=== PATIENT | male | born 1955 | race Caucasian/White ===

== ENCOUNTER 2017-02-19 05:53 | Day surgery (SDC) | payer OTHER ==
--- NOTE | 2017-02-14 11:35 | PCM.ANEPRE ---
Anesthesia Pre-Op Review Reason for Review: SURGEON'S REQUEST "MAC ANESTHESIA" Anesthesia Recommendations: Proceed with Procedure (oFFICE REQUESTED REVIEW BECAUSE PATIENT HAD Chest pain one year ago. The chest pain was worked up and EKG and labs were wnl. Low risk surgery. Proceed) Garry Alexandre MD Feb 14, 2017 11:35
[~2017-02-19] VITALS: Ht 175.3 cm; Wt 112.4 kg
[~2017-02-19 05:53] MED LIST: Bacitracin 50,000 unit Inj IRRIGATION ONE; HYDR12.5 PO; LISI40TA PO; OMEP20CA11 PO; OXYC1TAB24 PO; TYLENOL ARTHRITIS PO
[2017-02-19] MEDS ORDERED: fentaNYL-PF 50 mCg/mL 2 mL Inj ONE (05:54)
[2017-02-19] MEDS ORDERED: Propofol 10,000 mCg/mL 20 mL Inj ONE (05:54)
[2017-02-19] MEDS ORDERED: Lidocaine PF 1% 30 mL Inj ONE (05:54)
[2017-02-19] MEDS ORDERED: CeFAZolin 2 Gm/50 mL D5W IV Premix IV ONE (06:00)
[2017-02-19 06:33] VITALS: BP 121/84; PULSE 116; RESP 15; O2SAT 96
[2017-02-19] MEDS ORDERED: CeFAZolin Inj 2 gm / 50mL D5W IV ONE (06:34)
[2017-02-19] MEDS: Lactated Ringer's 1,000 ML IV SCH ×2 (06:39→07:53)
[2017-02-19] MEDS ORDERED: IBUP-1827 PO (06:46)
[2017-02-19] MEDS ORDERED: HYDROmorphone 1 mg/mL Inj IVPUSH PRN (07:15)
[2017-02-19] MEDS ORDERED: Phenylephrine 10,000 mCg/mL Inj IVPUSH PRN (07:15)
[2017-02-19] MEDS ORDERED: fentaNYL-PF 50 mCg/mL 2 mL Inj IVPUSH PRN (07:15)
[2017-02-19] MEDS ORDERED: Lactated Ringer's 500 ML IV PRN (07:15)
[2017-02-19] MEDS ORDERED: Ondansetron 2 mg/mL 2 mL Inj IVPUSH PRN (07:15)
[2017-02-19] MEDS ORDERED: EPHEDrine Sulfate 50 mg/mL Inj IVPUSH PRN (07:15)
[2017-02-19] MEDS ORDERED: MetoCLOpramide 5 mg/mL 2 mL Inj IVPUSH PRN (07:15)
[2017-02-19] MEDS ORDERED: Dexamethasone 4 mg/mL Inj IVPUSH PRN (07:15)
[2017-02-19] MEDS ORDERED: Lactated Ringer's 1,000 ML IV SCH (07:15)
--- NOTE | 2017-02-19 07:15 | PCM.HPANE ---
Patient Data Date of Service: Feb 19, 2017 (0715) Surgeon Admitting Provider: Attending Provider:Yohannes Mcmanus MD Primary Care Physician:Amos Milner MD Other Provider:Sonya Neely Anesthesia Reason for Visit Left Carpal Tunnel Syndrome Ht/WT & BMI Height (Feet): 5 Height (Inches): 9 Weight (Kilograms): 112.4 Body Mass Index 36.00 Allergies Coded Allergies: povidone-iodine (Verified Allergy, Severe, rash, 02/14/17) soap (Verified Allergy, Severe, rash, 02/14/17) Past Anesthesia History Anesthesia History: Denies:: Anesthesia Reactions, Fam Anesthesia Reaction, Fam Malignant Hypertherm, Malignant Hyperthermia Diabetes History Hx Diabetes?: No Current Bedside Blood Glucose: 122 MRSA MRSA: No Medications Hypertension Medication: Yes (LISINOPRIL,HCTZ) Home Meds Incl Beta Margoth: No Reported Medications Ibuprofen 600 Mg [id number] Mg PO TID PRN For Pain Ref 0 02/19/17 oxyCODONE-Acetaminophen 5-325 mg 1 Each Tablet1-2 Tab PO Q6H PRN For Pain Ref 0 02/14/17 Hydrochlorothiazide 12.5 Mg Bfhmilx46.5 Mg PO DAILY 30 Days Ref 0 03/11/14 Lisinopril 40 Mg Bpjijp49 Mg PO DAILY 30 Days Ref 0 03/11/14 Omeprazole 20 Mg Capsule.dr20 Mg PO DAILY 30 Days Ref 0 03/11/14 Discontinued Reported Medications [Tylenol Arthritis] No Conflict Nrtjb915-2,300 Mg PO Q 4-6HRS PRN 03/11/14 Amlodipine 10 Mg Lwenuc14 Mg PO DAILY 30 Days Ref 0 03/11/14 Multivitamin (Daily Multiple Vitamin)1 Each Tablet1 Each PO DAILY 03/11/14 Discontinued Scripts Hydrocodone-Acetaminophen 5-325 mg 1 Each Tablet1-2 Tablet PO QID PRN For Pain # 12 TABLET Prov:Lenin Villar DO 04/15/16 History History of ENT Problems?: Yes HEENT History: Positive for:: Sinus Problem (SEASONAL ALLERGIES) Denture Type: None Teeth Condition: Within Normal Limits Hx of Heart Problems?: Yes Cardiovascular History: Positive for:: Chest Pain (04/2016 (GLF AFTER BRIEF LOC)) Hypertension (HYPERLIPIDEMIA) Irregular Heartbeat (HX OF SINUS TACHY-DOESN'T SEE MASTER POLICE DETECTIVE) Denies:: Congestive Heart Failure Heart Murmur Hx of Respiratory Problem?: Yes Respiratory History: Denies:: Use of C-PAP Machine (SNORES) Hx Neurologic Problems?: Yes Neurological History: Positive for:: Headaches Hx of GI Problems?: Yes Other GI Pertinent History: S/P HERNIA RPR Hx of Problems?: Yes Other Pertinent History: HX LT RENAL SIMPLE CYST C/OF NOCTURIA Male Hx: Denies:: Prostate Problems Scrotal Mass Testicular Surgery Skin History: Denies:: History Skin Disorders? 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) Musculoskeletal Trauma (GLF W/ LOC) Osteoarthritis Hx of Psycho/Social Problems?: Yes Psycho Social History: Positive for:: Anxiety Hx Depression Hx Surgeries?: No (HERNIA RPR,B/L CASSY,RT CTR) Hx Any Other Health Problems?: Yes Other History: Denies:: Cancer Endocrine Disease Hospitalization Thyroid Disease History Blood Transfusions: Denies:: Blood Transfusions Hx Diabetes: NoBedside Blood Glucose: 122 Hx Alcohol Use: Yes (DAILY)Alcoholic Drinks Per Day: 15/WEEKHx Substance Use: Yes (HX OF THC) Smoking Status: Current Some Day Smoker Have You Smoked inLast 12 mo: YesApprox How Many Cigarettes/day: 1 PPD Stop/Bang S-Snoring: Do You Snore Loudly: Yes T-Tired: feel tired, fatigued: Yes O-Obsered: Observed not breath: No P-Blood Pressure: treated: Yes B- Body Mass Index > 35 kg/m2: Yes A- Age over 50: Yes N- Neck Large Circumference: Yes G- Gender Male: Yes ELEAZAR Total Score: 7 ELEAZAR Risk Assessment: High Risk, =/>3 Yes Risk Assessment Category Category 1A: Patient has history of documented sleep apnea, and HAS NOT received any narcotic, sedative or anesthesia administration during this stay. Category 1B: Patient has history of documented sleep apnea, and HAS received any narcotic , sedative or anesthesia administration during this stay Category 2: Patient has SUSPECTED Obstructive Sleep Apnea, and HAS received any narcotic , sedative or anesthesia administration during this stay. Category 3: Patient has SUSPECTED Obstructive Sleep Apnea and HAS NOT received narcotic, sedative or anesthesia administration during this stay. Category 4: Outpatient in Procedural Areas with known sleep apnea or who screen positive for High Risk via the STOP/BANG questionnaire. Exam Exam Vital Signs Vital Signs Date Time Temp Pulse Resp B/P Pulse Ox O2 Delivery O2 Flow Rate FiO2 02/19/17 06:33 36.2 116 15 121/84 96 General Appearance: Alert, Oriented X3, Cooperative HEENT/AIRWAY: MP 3 Lungs: Clear to Auscultation Heart: Exam Unremarkable Meds/Labs/Diagnostics Admission Meds Current Medications Lactated Ringer's (Lr) 1,000 ml @ 120 mls/hr Q8H20M IV Last administered on t 06:39; Start 02/19/17 at 05:00; Stop 02/19/17 at 13:19 Bedside Blood Glucose: 122 Plan Impression Patient chart reviewed, patient interviewed and anesthestic plan with risks, benefits, and alternatives discussed, and informed consent obtained. NPO per Anesth. Guidelines: Yes ASA Physical Status: ASA3 Severe Disease Anesthetic Plan: MAC Bene/Risks/Altern/Consents: Yes HP Complete Prior to Induction: Yes Bill Cool MD Feb 19, 2017 07:15
[2017-02-19] MEDS ORDERED: Bacitracin 50,000 unit Inj ONE (07:17)
--- NOTE | 2017-02-19 08:12 | PCM.DISURG ---
Surgical Discharge Instruction Date of Service Feb 19, 2017 Dates of Hospitalization Date of Hospital Admission Day Surgery status 02/19/2017 Providers Admitting Physician: Primary Care Physician: Amos Milner MD Attending Physician: Yohannes Mcmanus MD Discharge Diagnosis Discharge Diagnosis Status post left carpal tunnel release Post Operative diagnosis Status post left carpal tunnel release Additional Instructions Discharge Instructions POST OPERATIVE INSTRUCTIONS FOR CARPAL TUNNEL SURGERY Carpal tunnel syndrome is a disorder of the hand which can result in characteristic symptoms of pain and tingling (usually the thumb, index and middle fingers), loss of feeling in the hand, clumsiness and difficulty with manual activities. Description of Carpal Tunnel Syndrome The carpal tunnel is a narrow tunnel formed by the bones and ligaments of the wrist through which the nerves and tendons pass from the forearm to the hand. If the tendon linings become inflamed and swell, this can compress the main nerve of the hand (the median nerve) causing symptoms. This condition affects many people including laborers, typists, women and retired people alike. In most cases there is no obvious cause for the problem. Treatment Initial treatment can consist of splinting, and therapy. Definitive treatment is with surgical release of the carpal tunnel performed as a out-patient day procedure. Our preference is to perform this surgery under local anesthetic after the Anesthesiologist has given you some intravenous sedation. Dressings Your hand will be bandaged following your surgery. If you wish to take a shower , tape a plastic bag over your bandage and hold well above your head to prevent water dripping inside your dressing. These dressings can be changed by a Hand Therapist, a nurse or your doctor 7 and 14 days following surgery or as needed if they become soiled or saturated. You will only need dressing changes for the first two weeks or so until primary healing has occurred. Stitches Stitches will be removed by your nurse or provider 2 weeks after surgery. Smoking: Cigarette smoking (even just one or two!) can affect your healing and rate of complications. We therefore strongly recommend that you do not smoke for one month after your surgery. Medication: Take your usual and post operative medication as instructed. Aspirin: If you are taking aspirin under your doctor's orders (e.g. you have previously had a blood clot, stroke, heart attack, etc) it is preferable that you continue taking your aspirin. Otherwise you should avoid medicines containing aspirin for four days after surgery. Vitamin E: You should avoid medicines containing vitamin E for four weeks after surgery. Alcohol: Do not drink any alcohol (beer, wine, spirits) for one week after surgery. Food and Fluids: You may be constipated so have light meals with plenty of fluids (preferably 6- 8 glasses of water per day). Eat ample fresh fruit and vegetables. To reduce fluid retention, avoid salty foods. Activity We generally encourage gentle movements of the fingers within the dressing for the first few days. Keep your hand elevated above the heart for the first 48-72 hours to control swelling. Early movement is crucial to a good recovery and we will specify to you if you are to limit this mobilization in any way. You should be able to use your hand for eating, dressing and attending to hygiene needs straight after your operation. Please sleep with your hand elevated on a pillow beside you for the first week (at least) following surgery. Driving It is generally considered unsafe to drive with dressings in place. Your ability to drive safely will be determined by numerous factors relating your car and also your surgery. As a general rule, expect at least a week off driving or as long as you continue to take narcotic pain medications. Pain Pain is not usually a feature following this surgery. If you do have pain you should take your postoperative pain medications as directed. Recovery Generally speaking, carpal tunnel release is very successful surgery with a reliable outcome if pain is your only symptom. If there has been a long standing compression of the nerve with altered nerve function (numbness or weakness) your recovery may not be fully guaranteed. In these instances return of function is largely determined by the degree of compression and for how long the nerve was compressed. Work Your return to work will be largely determined by what you do with your hands at your place of work and whether the operation was to your dominant hand. A return to clerical duties can occur within days of surgery whereas it can be several weeks before returning to a manual job. Full strength and dexterity will not return until 3-6 months after surgery. Your Initial Follow-Up Schedule: Wound Checks in 1 & 2 weeks You should call your Doctor or go to the Emergency Department if you develop chest pain, shortness of breath, a temperature greater than 101.5 F , Increased pain/swelling/bruising, Change of color of any of your digits, Bleeding/ discharge/offensive odor or Any sudden loss of movement in your hand. Follow Up Plan Follow Up Plan Follow-up with Dr. Yohannes Mcmanus, and the [facility] in [facility] in 1 week for wound check & 2 weeks for suture removal. Follow-up Provider (F9): Yohannes Mcmanus MD Additional Information Attending Statement All documentation reviewed & orders authorized by Dr. Yohannes Mcmanus M.D. Damon Swenson PA-C Feb 19, 2017 08:12
[2017-02-19] MEDS ORDERED: oxyCODONE-Acetamin 5-325 mg Tablet PO PRN (08:15)
[2017-02-19] MEDS ORDERED: Bacitracin Ointment Packet TOPICAL ONE (08:17)
--- NOTE | 2017-02-19 08:26 | PCM.ANEP1 ---
Post Anesthesia PACU Phase 1 Assessment Vital Signs 36.4, 94%, 110, 123/106, 10 Vital Signs Date Time Temp Pulse Resp B/P Pulse Ox O2 Delivery O2 Flow Rate FiO2 02/19/17 06:33 36.2 116 15 121/84 96 Anesthetic Administered: MAC Level of Alertness: Awake, talking RIDLEY's with Equal Strength: Yes Pain: No Nausea or Vomiting: No CV Function & Hydration Stable: Yes Airway Device: NONE Oxygen Delivery: Room Air Lungs: Clear to Auscultation Dermatome Level: Full Sensation Summary UNEVENTFUL GA PACU Phase 2 Assessment Complications: No Follow up Care: No Patient Instructions Provided: N/A Bill Cool MD Feb 19, 2017 08:26
[2017-02-19 08:34] VITALS: BP 125/85; PULSE 100; RESP 16; O2SAT 99
[2017-02-19 08:57] VITALS: BP 143/7; PULSE 108; RESP 18; O2SAT 99
--- NOTE | 2017-02-19 17:37 | OP ---
[address] [address] OPERATIVE REPORT PATIENT: HARSH ZAIDI : 1955 MR#: [id number] ADMIT: 02/19/2017 JOB ID: [id number] DATE OF SURGERY: 02/19/2017 SURGEON: Yohannes Mcmanus M.D. MANAGER TALENT ACQUISITION: None. PREOPERATIVE DIAGNOSIS(ES): Left carpal tunnel syndrome. POSTOPERATIVE DIAGNOSIS(ES): Left carpal tunnel syndrome. OPERATIVE PROCEDURE: Left carpal tunnel release. ANESTHESIA: MAC with local. COMPLICATIONS: None. ESTIMATED BLOOD LOSS: Less than 5 cc. DRAINS: None. FINDINGS AT THE TIME OF SURGERY: There was very thickened transverse carpal ligament. Sectioning of the ligament was undertaken without difficulty both proximally and distally. After decompression, there appeared to be no further compression of the median nerve. Superficial neurolysis was performed. INDICATIONS: This is a 61-year-old gentleman who has been having persistent paresthesias of the left hand. The patient has undergone conservative therapy. The patient subsequently had electrodiagnostic studies compatible with carpal tunnel syndrome. The patient failed conservative treatment. He subsequently wanted to proceed with surgery and here at this time for a left carpal tunnel release. Indications and complications of the procedure were explained to the patient on his preop visit. It was explained to the patient that all the paresthesias may not get better 100%, and it may take a while for all the symptoms to resolve. PROCEDURE: The patient was identified in the preoperative area. Left arm was marked. The patient's history, examination, medications, allergies and labs were reviewed. He was then taken to the operating room where he underwent general endotracheal anesthesia without complication. He was given 2 gm of intravenous Ancef. The patient refused to use the SCDs in the lower extremities. The left hand and forearm was then prepped in the usual sterile fashion for a left carpal tunnel release. After appropriate prepping and draping, the appropriate time out was performed confirming the patient's name, date of , planned procedure and presence of appropriate instrumentation. The patient's ELEAZAR, beta block, diabetic and MRSA status was reviewed. Antibiotic administration, DVT prophylaxis and appropriate imaging on the screen was confirmed. At the time I was completed, the proximal wrist and palm was infiltrated with 50/50% solution of 0.25% Marcaine and 1% Xylocaine without epinephrine. After infiltration of the skin, a single linear incision was then made from the transverse crease of the wrist following distally to the mid palmar area, carried down through skin and subcutaneous tissue. Subcutaneous retractors were placed along of the palmar aponeurosis. This was carefully incised closing the thickening transverse carpal ligament. The ligament was then placed on stretch using retractor and then careful sectioning of the transverse carpal ligament was undertaken until the nerve was identified. This was protected using a Sanford instrument and the distal portion of the ligament was incised using a 15 blade knife. The more proximal ligament was then incised using Metzenbaum scissors and care was taken to make sure that it was incised under the wrist. A portion of the ligament was removed sharply using a 15 blade knife. The surface of the ligament was then coagulated and shrunk on both the right and left side. A superficial neurolysis was performed using pickups and iris scissors. The median nerve appeared to be very swollen. At that point, the wound was irrigated with bacitracin paint and saline and hemostasis was achieved using two point cautery. The nerve appeared to be free and clear from compression both proximally and distally. At that point after hemostasis was achieved, the incision subcutaneously was reapproximated using inverted 4-0 Vicryl suture and the skin was then closed using running 4-0 Nurolon suture. The incision was then dry and clean. Bacitracin ointment was applied followed by Telfa dressing. Kerlix hand dressing was then applied and secured using Coban. The patient was then transferred to a stretcher and taken to the PACU in stable condition. The patient tolerated the procedure well without any major complications. Estimated blood loss was less than 5 cc.
== END 2017-02-19 23:59 | disposition home or self-care (01) ==
LOC: SAS 05:53
PROVIDERS: ATTEND Neurological Surgery
DX: G56.02 Carpal tunnel syndrome, left upper limb (principal); I10 Essential (primary) hypertension; M54.12 Radiculopathy, cervical region; F32.9 Major depressive disorder, single episode, unspecified; M19.90 Unspecified osteoarthritis, unspecified site; F41.9 Anxiety disorder, unspecified; G89.29 Other chronic pain; E66.9 Obesity, unspecified; F17.210 Nicotine dependence, cigarettes, uncomplicated; Z68.35 Body mass index [BMI] 35.0-35.9, adult; Z96.642 Presence of left artificial hip joint; Z72.89 Other problems related to lifestyle
CPT/HCPCS: 64721; J0690; J7120